=== PATIENT | female | born 1945 | race Caucasian/White ===

== ENCOUNTER → 2020-01-18 | Outpatient (CLI) | payer OTHER ==
[2020-01-18 13:05] LABS: CALCIUM 9.8 mg/dL (8.5-10.1); CREATININE 1.8 mg/dL (0.6-1.3); POTASSIUM 4.4 mmol/L (3.5-5.1)
== END ==
LOC: M.LAB 12:23
PROVIDERS: Internal Medicine Interventional Cardiology
DX: I35.0 Nonrheumatic aortic (valve) stenosis (principal)